=== PATIENT | male | born 1995 | race African-American/Black ===

== ENCOUNTER 2017-03-02 11:45 | Emergency (ER) | payer BC ==
[~2017-03-02] VITALS: Ht 180.3 cm; Wt 80.4 kg
[2017-03-02 12:39] LABS: HEMATOCRIT 44.8 % (38.0-50.0); MCH 29.3 PG (29.0-34.0); MCHC 34.6 G/DL (30.0-36.0); MCV 84.7 FL (86-99); MEAN PLAT.VOLUME 9.9 uM^3 (9.0-12.4); PLATELET COUNT 292 K/uL (156-360); RBC DIS.WIDTH-CV 11.9 % (11.8-14.6); RBC DIS.WIDTH-SD 36.1 % (39-53); RED BLOOD COUNT 5.29 M/uL (4.00-5.50); WHITE BLOOD COUNT 10.1 K/uL (4.1-10.2)
[2017-03-02 12:45] LABS: ADD MIUA? NO; BILIRUBIN NEGATIVE; BLOOD NEGATIVE; COLOR YELLOW ((YELLOW)); GLUCOSE (STRIP) NEGATIVE; KETONES 20; LEUKOCYTES NEGATIVE; NITRITE NEGATIVE; PROTEIN (STRIP) 30; SPECIFIC GRAVITY 1.026 (1.000-1.030); UCUL ADDED? NO
[2017-03-02 12:50] LABS: CHLORIDE 103 mEq/L (99-109); POTASSIUM 4.1 mEq/L (3.7-5.4); SODIUM 138 mEq/L (136-147)
[2017-03-02 12:52] LABS: GLUCOSE 86 mg/dL (70-99)
[2017-03-02 12:53] LABS: ANION GAP 14 MEQ/L (2-14)
[2017-03-02 12:56] LABS: UREA NITROGEN (BUN) 12 mg/dL (9-23)
[2017-03-02 13:03] LABS: GFR ESTIMATE (CALCULATED) > 59 mL/min/ (58.99-99999)
[2017-03-02] MEDS ORDERED: ZOFRAN ODT8 MG PO (14:08)
[2017-03-02] MEDS ORDERED: XYLOCAINE VISC100 ML PO (14:08)
[2017-03-02 14:33] VITALS: BP 138/78
== END 2017-03-02 14:34 | disposition home or self-care (01) ==
LOC: EME 11:45
DX: R11.2 Nausea with vomiting, unspecified (principal); R19.7 Diarrhea, unspecified
CPT/HCPCS: 80048; 81003; 85027; 99281; 99284; J2405

== ENCOUNTER 2017-03-13 08:41 | Emergency (ER) | payer BC ==
[~2017-03-13] VITALS: Ht 180.3 cm; Wt 77.2 kg
[~2017-03-13 08:41] MED LIST: XYLOCAINE VISC100 ML PO; ZOFRAN ODT8 MG PO
[2017-03-13 09:13] LABS: MCH 29.8 PG (29.0-34.0); MCHC 35.1 G/DL (30.0-36.0); MCV 84.9 FL (86-99); PLATELET COUNT 300 K/uL (156-360); RBC DIS.WIDTH-CV 12.4 % (11.8-14.6); RBC DIS.WIDTH-SD 37.8 % (39-53); RED BLOOD COUNT 5.77 M/uL (4.00-5.50)
[2017-03-13 09:22] LABS: CHLORIDE 105 mEq/L (99-109); POTASSIUM 4.5 mEq/L (3.7-5.4); SODIUM 140 mEq/L (136-147)
[2017-03-13 09:24] LABS: GLUCOSE 96 mg/dL (70-99)
[2017-03-13 09:26] LABS: ANION GAP 12 MEQ/L (2-14); TOTAL BILIRUBIN 1.5 mg/dL (0.0-1.0)
[2017-03-13 09:28] LABS: ALKALINE PHOSPHATASE 63 IU/L (3-129); GFR ESTIMATE (CALCULATED) > 59 mL/min/ (58.99-99999)
[2017-03-13 09:29] LABS: UREA NITROGEN (BUN) 11 mg/dL (9-23)
[2017-03-13 09:31] LABS: LIPASE 72 U/L (1.0-51.0)
[2017-03-13 12:29] LABS: ADD MIUA? YES; BILIRUBIN NEGATIVE; BLOOD NEGATIVE; COLOR YELLOW ((YELLOW)); GLUCOSE (STRIP) NEGATIVE; KETONES 20; LEUKOCYTES TRACE; NITRITE NEGATIVE; PROTEIN (STRIP) NEGATIVE; UROBILINOGEN 0.2 MG/DL (0.2-1.0)
[2017-03-13 12:37] LABS: AMPHETAMINE NEGATIVE (500 ng/mL); BARBITURATES NEGATIVE (200 ng/mL); BENZODIAZEPINES NEGATIVE (150 ng/mL); COCAINE NEGATIVE (150 ng/mL); INTERNAL CONTROLS VALID? YES; METHADONE NEGATIVE (200 ng/mL); METHAMPHETAMINE NEGATIVE (500 ng/mL); OPIATES (MORPHINE) NEGATIVE (100 ng/mL); OXYCODONE NEGATIVE (100 ng/mL); PHENCYCLIDINE NEGATIVE (25 ng/mL); PROPOXYPHENE NEGATIVE (300 ng/mL); THC CANNABINOIDS PRESUMPTIVE POSITIVE (50 ng/mL); TRICYCLIC ANTIDEPRESSANTS NEGATIVE (300 ng/mL)
[2017-03-13 12:38] LABS: ADD MEDTOX COMMENT Y
[2017-03-13 12:45] LABS: BACTERIA NONE SEEN /HPF; EPITHELIAL CELLS NONE SEEN /HPF; MUCUS NONE SEEN /LPF; RED BLOOD CELLS 0-5 /HPF (0-5); UCUL ADDED? YES; WHITE BLOOD CELLS 20-30 /HPF (0-5)
[2017-03-13 12:58] LABS: SPECIFIC GRAVITY 1.087 (1.000-1.030)
[2017-03-13] MEDS ORDERED: ZOFRAN ODT4 MG PO (13:25)
[2017-03-13 14:15] VITALS: BP 101/55
== END 2017-03-13 14:16 | disposition home or self-care (01) ==
LOC: EME 08:41
PROVIDERS: Physician Assistant Medical
DX: R11.2 Nausea with vomiting, unspecified (principal)
CPT/HCPCS: 74177; 80053; 81003; 83690; 84999; 85027; 87086; 87177; 87493; 87506; 99281; 99285; J1885; J2405; J7030